=== PATIENT | male | born 1975 | race Caucasian/White ===

== ENCOUNTER 2020-01-04 12:55 | Emergency (ER) | payer OTHER ==
[2020-01-04] MEDS ORDERED: Diphtheria,Pertussis(Acell),Tetanus Vaccine 0.5 ML Syringe IM ONE (13:10)
--- NOTE | 2020-01-04 13:37 | CR ---
Left hand: 4 views left hand were obtained. Comparison: No previous hand study. Diffuse soft tissue air seen throughout the second through fourth fingers as well as around the metacarpal region. No acute fracture or other bony abnormality is seen. No radiopaque foreign object is seen. Impression: 1. Diffuse soft tissue air as noted above. Diagnostic code #2 This report was dictated in MDT
--- NOTE | 2020-01-04 13:54 | EDM.PDOC ---
ED HPI GENERAL MEDICAL PROBLEM - General Chief Complaint: Upper Extremity Injury/Pain Stated Complaint: L MIDDLE/POINTER FINGER LAC Time Seen by Provider: 01/04/20 13:05 Source of Information: Reports: Patient History Limitations: Reports: No Limitations - History of Present Illness INITIAL COMMENTS - FREE TEXT/NARRATIVE: The patient presents with lacerations to his left hand. He was using a high pressure water equipment [place] There was some trouble with the machine and he accidently ran his hand over the nozzle. He is right handed. He is not sure of his last tetanus. He has lacerations to his left 2nd, 3rd and 4th fingers on the volar side. He can still fell me touching him and he has good capillary refill. Onset: Sudden Duration: Minutes: Location: Reports: Upper Extremity, Left (hand) Quality: Reports: Sharp Severity: Moderate Improves with: Reports: Immobilization Worsens with: Reports: Movement Context: Reports: Trauma Associated Symptoms: Reports: No Other Symptoms Left Finger-Index Pain Score (Numeric/FACES): 10 - Related Data Allergies Allergy/AdvReac Type Severity Reaction Status Date / Time No Known Allergies Allergy Verified 01/04/20 13:06 Home Meds: Home Meds Losartan [Cozaar] 100 mg PO DAILY 01/04/20 [History] Metoprolol Succinate 50 mg PO DAILY 01/04/20 [History] Omeprazole 20 mg PO DAILY 01/04/20 [History] amLODIPine [Norvasc] 5 mg PO DAILY 01/04/20 [History] cephALEXin [Keflex] 500 mg PO Q6HR #40 capsule 01/04/20 [Rx] Past Medical History Cardiovascular History: Reports: Hypertension Gastrointestinal History: Reports: GERD - Infectious Disease History Infectious Disease History: Reports: Chicken Pox Social & Family History - Tobacco Use Smoking Status *Q: Never Smoker - Caffeine Use Caffeine Use: Reports: Coffee, Soda Other Caffeine Use: diet cola; energy ice tea - Recreational Drug Use Recreational Drug Use: No Review of Systems - Review of Systems Review Of Systems: See Below Constitutional: Reports: No Symptoms Eyes: Reports: No Symptoms Ears: Reports: No Symptoms Nose: Reports: No Symptoms Mouth/Throat: Reports: No Symptoms Respiratory: Reports: No Symptoms Cardiovascular: Reports: No Symptoms GI/Abdominal: Reports: No Symptoms Genitourinary: Reports: No Symptoms Musculoskeletal: Reports: Other (Left hand lacerations) ED EXAM, GENERAL - Physical Exam Exam: See Below Exam Limited By: No Limitations General Appearance: Alert, No Apparent Distress Ears: Normal External Exam Nose: Normal Inspection Head: Atraumatic, Normocephalic Neck: Normal Inspection Respiratory/Chest: No Respiratory Distress Extremities: Other (The left index finger has a 2.5cm laceration to the volar aspect with good sensation and capillary refill. Middle finger has a 3.25cm laceration to the vilar aspect with good sensation and movement. The ring finger has a 0.5cm laceration to the volar aspect with good sensation and capillar refill.) ED TRAUMA EXTREMITY PROCEDURES - Laceration/Wound Repair Left Digit - 3rd (Middle) Lac/Wound Length In cm: 3.2 Appearance: Subcutaneous, Irregular Distal NVT: Neuro & Vascular Intact, No Tendon Injury Anesthetic Type: Digital Local Anesthesia - Lidocaine (Xylocaine): 1% Plain Skin Prep: Providone-Iodine (Betadine), Saline Exploration/Debridement/Repair: Wound Explored, In a Bloodless Field, Explored to Base Closed With: Sutures Suture Size: 4-0 # of Sutures: 3 Suture Type: Nylon, Interrupted, Simple Sterile Dressing Applied: Nurse Tetanus Status Addressed: Yes Complications: No - Splinting Left Upper Extremity Splint Site: left hand Pre-Procedure NV Status: Normal Post-Procedure NV Status: Normal Splint Material: Fiberglass Splint Design: Volar Applied & Form Fitted By: Provider Provider Post-Splint Application NV Check: NV Status Normal, Good Position Complications: No Course - Vital Signs Last Recorded V/S: Last Vital Signs Temp 98.7 F 01/04/20 13:11 Pulse 85 01/04/20 13:11 Resp 20 01/04/20 13:11 BP 138/75 01/04/20 13:11 Pulse Ox 97 01/04/20 13:11 - Orders/Labs/Meds Orders: Active Orders 24 hr Category Date Time Status Vaccines to be Administered [RC] PER UNIT ROUTINE Care 01/04/20 13:10 Active Meds: Medications Discontinued Medications Generic Name Dose Route Start Last Admin Trade Name Freq PRN Reason Stop Dose Admin Ceftriaxone Sodium 1 gm/ 0 gm 01/04/20 14:30 Lidocaine HCl 2.1 ml IM 01/04/20 14:31 ONETIME ONE Diphtheria/Tetanus/Acell Pertussis 0.5 ml 01/04/20 13:10 01/04/20 14:11 Adacel IM 01/04/20 13:11 0.5 ml .ONCE ONE Administration Lidocaine HCl 10 ml 01/04/20 13:55 01/04/20 14:11 Xylocaine 1% INJECT 01/04/20 13:56 10 ml ONETIME ONE Administration - Re-Assessments/Exams Free Text/Narrative Re-Assessment/Exam: 01/04/20 14:07 I did an x-ray and there was diffuse soft tissue air seen throughout the second through fourth fingers as well as around the metacarpal region. No acute fracture or other bony abnormality is seen. No radiopaque foreign object is seen. I called [facility] in [place] and talked with Dr Monteiro the hand surgeon television camera operator and he wanted me to clean the wound out and loosely approximate the wounds and get him on antibiotics. I ordered tetanus and rocephin IM and I will suture the wounds. 01/04/20 14:48 I sutured the wounds and I have splinted the patient. He will get the rocephin and a prescription for keflex. Departure - Departure Time of Disposition: 15:00 Disposition: Home, Self-Care 01 Condition: Good Clinical Impression: High pressure injury of left hand Laceration of left index finger Qualifiers: Encounter type: initial encounter Damage to nail status: without damage Foreign body presence: without foreign body Qualified Code(s): S61.211A - Laceration without foreign body of left index finger without damage to nail, initial encounter Laceration of left middle finger Qualifiers: Encounter type: initial encounter Damage to nail status: without damage Foreign body presence: without foreign body Qualified Code(s): S61.213A - Laceration without foreign body of left middle finger without damage to nail, initial encounter - Discharge Information *PRESCRIPTION DRUG MONITORING PROGRAM REVIEWED*: Not Applicable *COPY OF PRESCRIPTION DRUG MONITORING REPORT IN PATIENT STACEY: Not Applicable Prescriptions: cephALEXin [Keflex] 500 mg PO Q6HR #40 capsule Referrals: Celine Deluca MD [Primary Care Provider] - Roly Mtz MD [Ordering Only Provider] - 1 Week Forms: ED Department Discharge Additional Instructions: Take the keflex every 6 hours for 10 days. Soak your hand in warm soapy water 2 times per day and apply antibiotic ointment after. Have the sutures removed in a week. Look for any signs of infection such as redness, swelling, pain or discharge. Sepsis Event Note (ED) - Evaluation Sepsis Screening Result: No Definite Risk - Focused Exam Vital Signs: Vital Signs Temp Pulse Resp BP Pulse Ox 01/04/20 13:11 98.7 F 85 20 138/75 97 - My Orders Last 24 Hours: My Active Orders 01/04/20 13:10 Vaccines to be Administered [RC] PER UNIT ROUTINE - Assessment/Plan Last 24 Hours: My Active Orders 01/04/20 13:10 Vaccines to be Administered [RC] PER UNIT ROUTINE ED LACERATION PROCEDURES - Laceration/Wound Repair Left Digit - 3rd (Middle) Lac/wound length in cm: 2.5 Appearance: Subcutaneous, Irregular Distal NVT: Neuro & Vascular Intact, No Tendon Injury Anesthetic Type: Digital Local Anesthesia - Lidocaine (Xylocaine): 1% Plain Skin Prep: Providone-Iodine (Betadine), Saline Exploration/Debridement/Repair: Wound Explored, In a Bloodless Field, Explored to Base Closed with: Sutures Suture Size: 4-0 # of Sutures: 2 Suture Type: Nylon, Interrupted, Simple Tetanus Status Addressed: Yes Complications: No
[2020-01-04] MEDS ORDERED: Lidocaine 1% 10 ML MDV INJECT ONE (13:55)
[2020-01-04] MEDS ORDERED: cefTRIAXone 1 GM, Lidocaine 1% 2.1 ML IM ONE ×2 (14:30)
== END 2020-01-04 15:06 | disposition home or self-care (01) ==
LOC: JD.ED 12:55 → SUPCPDRO 12:55 → JD.ED 14:50
DX: S61.211A Laceration without foreign body of left index finger without damage to nail, initial encounter (principal); S61.213A Laceration without foreign body of left middle finger without damage to nail, initial encounter
CPT/HCPCS: 12002; 73130; 90471; 90715; 96372; 99283; J0696; J2001; 29125